=== PATIENT | male | born 1975 | race Caucasian/White ===

== ENCOUNTER 2021-10-30 11:33 | Emergency (ER) | payer BC, OTHER ==
[~2021-10-30] VITALS: Ht 177.8 cm; Wt 131.5 kg
[~2021-10-30 11:33] MED LIST: ALEVE PO; NORCO 5-325 TA1 EACH PO
[2021-10-30] MEDS ORDERED: IBUPROFEN 600 MG TAB PO STA (11:57)
[2021-10-30] MEDS ORDERED: LIDOCAINE HCL 2% LOCAL 20 ML VIAL ONE (12:12)
[2021-10-30] MEDS ORDERED: BACTRIM DS TAB1 EACH PO (12:47)
[2021-10-30] MEDS ORDERED: IBUPROFEN600 MG PO (12:47)
[2021-10-30] MEDS ORDERED: LIDOCAINE HCL 1% LOCAL INJ 20 ML VIAL INJ ONE (13:00)
[2021-10-30 13:01] VITALS: BP 144/75
== END 2021-10-30 13:02 | disposition home or self-care (01) ==
LOC: ER 11:51
DX: L02.415 Cutaneous abscess of right lower limb (principal); Z85.118 Personal history of other malignant neoplasm of bronchus and lung
CPT/HCPCS: 10061; 99283; J2001

== ENCOUNTER 2022-07-09 12:32 | Emergency (ER) | payer OTHER ==
[~2022-07-09] VITALS: Ht 177.8 cm; Wt 131.5 kg
[~2022-07-09 12:32] MED LIST changes: +BACTRIM DS TAB1 EACH PO; +IBUPROFEN600 MG PO
[2022-07-09] MEDS ORDERED: BACTRIM DS TAB1 EACH PO (18:11)
== END 2022-07-09 18:40 | disposition home or self-care (01) ==
LOC: ER 12:42
DX: L02.31 Cutaneous abscess of buttock (principal); Z85.118 Personal history of other malignant neoplasm of bronchus and lung
CPT/HCPCS: 99283

== ENCOUNTER 2022-07-15 15:55 | Emergency (ER) | payer OTHER ==
[~2022-07-15] VITALS: Ht 177.8 cm; Wt 130.0 kg
[2022-07-15] MEDS ORDERED: CLINDAMYCIN HC300 MG PO (17:23)
[2022-07-15] MEDS ORDERED: DOXYCYCLINE HY100 MG PO (17:27)
[2022-07-15] MEDS ORDERED: MUPIROCIN22 GM TOP (17:28)
== END 2022-07-15 17:44 | disposition home or self-care (01) ==
LOC: FSED 16:07
DX: L03.312 Cellulitis of back [any part except buttock and flank] (principal); L72.3 Sebaceous cyst; Z85.118 Personal history of other malignant neoplasm of bronchus and lung
CPT/HCPCS: 10060; 99283